=== PATIENT | male | born 1965 | race Caucasian/White ===

== ENCOUNTER → 2017-02-26 | Outpatient (CLI) | payer BC ==
[~2017-02-26] MED LIST: CYMBALTA PO; HYDROCODONE-APA1 T30 PO; WALGREENS PHARMACY
--- NOTE | ~2017-02-26 | CT4 ---
[facility] A Service [facility] RADIOLOGY TEXT RESULTS PATIENT: DALE JORDAN LOCATION: [facility] : 63 UNIT #: [id number] AGE: [address]: JERAMIE HUDDLESTON APRN SEX: M ORDER DR: [id number] [place] [id number] O MR#: [id number] Acc #: [id number] NAME: DALE JORDAN : 1965 SEX: M STUDY DATE/TIME: 02/26/2017 16:36 UNIT: [facility] ROOM: STUDY DESCRIPTION: CT Abd and Pelv Wo Cont Attending Physician: Jeramie Huddleston Aprn Referring Physician: Jeramie Huddleston Aprn Ordering Physician: Jeramie Huddleston Aprn Primary Care Physician: Thad Solis M.D. MEDICAL IMAGING REPORT This report is preliminary unless electronic signature is present. EXAM Abdomen and pelvis CT with contrast, 02/26/2017. INDICATIONS 51-year-old male with flank pain on the right, urinary frequency 2 weeks, history of cholecystectomy and appendectomy. TECHNIQUE Noncontrast abdomen and pelvis CT was performed. This CT exam was performed with one or more of the following radiation dose reduction techniques: automatic exposure control, adjustment of mA and/or kV according to patient size, and iterative reconstruction. COMPARISON No comparisons. FINDINGS CT ABDOMEN Exam markedly degraded by noncontrast technique. Included lung bases are clear. Aorta unremarkable. Gallbladder surgically absent. Solid abdominal organs otherwise unremarkable. Kidneys unremarkable. No radiopaque stone or hydronephrosis. CT PELVIS Tiny left inguinal hernia contains fat only. Bladder and prostate unremarkable. Bowel unremarkable. Appendix surgically absent. No suspicious bone lesion. Degenerative change at L5-S1. [facility] A Service of [facility] RADIOLOGY TEXT RESULTS PATIENT: DALE JORDAN LOCATION: [facility] : 63 UNIT #: [id number] AGE: [address]: JERAMIE HUDDLESTON APRN SEX: M ORDER DR: IMPRESSION 1. Negative noncontrast CT of the abdomen and pelvis. Dictated by... Joshua Sahu M.D. THIS IS AN ELECTRONICALLY VERIFIED REPORT Joshua Sahu M.D. at 02/27/2017 5:17 PM Martinez TD: 02/27/2017 11:49 JOB #: [id number] MEDICAL IMAGING REPORT Page 1 of 1
== END | disposition home or self-care (01) ==
LOC: SCT 16:22
DX: R10.9 Unspecified abdominal pain (principal); R35.0 Frequency of micturition
CPT/HCPCS: 74176